=== PATIENT | male | born 2005 | race Two or more races ===

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

== ENCOUNTER 2023-12-06 15:35 | Emergency (ER) | payer MEDICAID ==
[~2023-12-06] VITALS: Ht 177.8 cm; Wt 63.6 kg
[~2023-12-06 15:35] MED LIST changes: +ALBU18HF12 IH; -ALBU8HFA IH
[2023-12-06 15:39] VITALS: TEMP 98
[2023-12-06] MEDS ORDERED: PRED-554 PO (17:55)
[2023-12-06] MEDS ORDERED: TRIA15CR49 TP (17:55)
[2023-12-06 18:00] VITALS: BP 116/64; PULSE 77; RESP 20
== END 2023-12-06 18:11 | disposition home or self-care (01) ==
LOC: EMS 15:35
DX: L30.9 Dermatitis, unspecified (principal); J45.909 Unspecified asthma, uncomplicated; Z91.010 Allergy to peanuts; Z91.018 Allergy to other foods
CPT/HCPCS: 99282; Z7502